=== PATIENT | female | born 2005 | race African-American/Black ===

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

== ENCOUNTER 2023-10-06 13:40 | Emergency (ER) | payer SELFPAY | END 2023-10-06 15:46 | disposition home or self-care (01) | LOC: CSHERS 13:40 | DX: R82.71 Bacteriuria (principal); Z33.1 Pregnant state, incidental | CPT/HCPCS: 36415; 81001; 81025; 84702; 87086; 99284 ==